=== PATIENT | female | born 1990 | race Hispanic/Latino ===

== ENCOUNTER 2024-02-08 16:33 | Observation (INO) | payer MEDICAID ==
[~2024-02-08] VITALS: Ht 170.2 cm; Wt 121.6 kg
[2024-02-08 16:35] VITALS: BP 136/78; PULSE 71; RESP 20
[2024-02-08 17:46] LABS: APPEARANCE,URINE CLEAR (CLEAR); BILIRUBIN,URINE NEGATIVE (NEGATIVE); COLOR,URINE YELLOW (YELLOW); GLUCOSE, URINE (UA) 500 mg/dL (NEGATIVE); KETONES,URINE 60 mg/dL (NEGATIVE); LEUKOCYTE ESTERASE ,URINE NEGATIVE Leu/uL (NEGATIVE); NITRATE,URINE NEGATIVE (NEGATIVE); OCCULT BLOOD,URINE NEGATIVE (NEGATIVE); PH,URINE 5.5 (5.0-8.0); PROTEIN,URINE 10 mg/dL (NEGATIVE); UROBILINOGEN,URINE 0.2 mg/dL (0.2-1.0)
[2024-02-08 17:54] LABS: AMPHET/METH SCREEN,URINE NEGATIVE (NEGATIVE); BARBITURATE SCREEN, URINE NEGATIVE (NEGATIVE); BENZODIAZEPINES SCREEN,URINE NEGATIVE (NEGATIVE); CANNABINOID SCREEN,URINE NEGATIVE (NEGATIVE); COCAINE SCREEN,URINE NEGATIVE (NEGATIVE); OPIATE SCREEN,URINE NEGATIVE (NEGATIVE); PHENCYCLIDINE SCREEN,URINE NEGATIVE (NEGATIVE)
[2024-02-08 17:59] LABS: ADD UA MICROSCOPIC YES
[2024-02-08 18:01] LABS: BACTERIA,URINE RARE /HPF (None Seen); MUCUS,URINE RARE LPF (None Seen); RBC,URINE 0-1 /HPF (0-1); SQUAMOUS EPITHELIAL CELL,UR FEW /HPF (0-2); YEAST,URINE BUDDING RARE /HPF (None Seen)
== END 2024-02-08 18:35 | disposition home or self-care (01) ==
LOC: EDH 16:33 → LDH 16:34
PROVIDERS: ADMIT Internal Medicine; ATTEND Internal Medicine
DX: O75.9 Complication of labor and delivery, unspecified (principal); O16.3 Unspecified maternal hypertension, third trimester; O99.513 Diseases of the respiratory system complicating pregnancy, third trimester; O26.893 Other specified pregnancy related conditions, third trimester; R42 Dizziness and giddiness; R06.02 Shortness of breath; R25.1 Tremor, unspecified; Z3A.31 31 weeks gestation of pregnancy; Z79.899 Other long term (current) drug therapy
CPT/HCPCS: 80305; 81001; G0378 ×2; G0379

== ENCOUNTER 2024-03-01 10:15 | Observation (INO) | payer MEDICAID ==
[~2024-03-01] VITALS: Ht 170.2 cm; Wt 122.9 kg
== END 2024-03-01 10:22 | disposition home or self-care (01) ==
LOC: LDH 10:15
PROVIDERS: ADMIT Internal Medicine; ATTEND Internal Medicine
DX: O36.8130 Decreased fetal movements, third trimester, not applicable or unspecified (principal); Z3A.34 34 weeks gestation of pregnancy
CPT/HCPCS: 76819; G0379; G0378; 59025

== ENCOUNTER 2024-03-03 11:49 | Observation (INO) | payer MEDICAID ==
[~2024-03-03] VITALS: Ht 170.2 cm; Wt 122.9 kg
[2024-03-03 11:53] VITALS: BP 120/76; PULSE 79; RESP 16
[2024-03-03 12:35] LABS: APPEARANCE,URINE CLEAR (CLEAR); BILIRUBIN,URINE NEGATIVE (NEGATIVE); COLOR,URINE YELLOW (YELLOW); GLUCOSE, URINE (UA) 50 mg/dL (NEGATIVE); KETONES,URINE NEGATIVE (NEGATIVE); LEUKOCYTE ESTERASE ,URINE NEGATIVE Leu/uL (NEGATIVE); NITRATE,URINE NEGATIVE (NEGATIVE); OCCULT BLOOD,URINE NEGATIVE (NEGATIVE); PROTEIN,URINE 10 mg/dL (NEGATIVE)
[2024-03-03 12:43] LABS: AMPHET/METH SCREEN,URINE NEGATIVE (NEGATIVE); BARBITURATE SCREEN, URINE NEGATIVE (NEGATIVE); BENZODIAZEPINES SCREEN,URINE NEGATIVE (NEGATIVE); CANNABINOID SCREEN,URINE NEGATIVE (NEGATIVE); COCAINE SCREEN,URINE NEGATIVE (NEGATIVE); OPIATE SCREEN,URINE NEGATIVE (NEGATIVE); PHENCYCLIDINE SCREEN,URINE NEGATIVE (NEGATIVE)
[2024-03-03 12:44] LABS: ADD UA MICROSCOPIC YES
[2024-03-03 12:45] LABS: BACTERIA,URINE RARE /HPF (None Seen); MUCUS,URINE RARE LPF (None Seen); RBC,URINE 0-1 /HPF (0-1); SQUAMOUS EPITHELIAL CELL,UR RARE /HPF (0-2)
[2024-03-03 14:25] LABS: APPEARANCE,URINE CLEAR (CLEAR); BILIRUBIN,URINE NEGATIVE (NEGATIVE); COLOR,URINE YELLOW (YELLOW); GLUCOSE, URINE (UA) NEGATIVE (NEGATIVE); KETONES,URINE 60 mg/dL (NEGATIVE); LEUKOCYTE ESTERASE ,URINE NEGATIVE Leu/uL (NEGATIVE); NITRATE,URINE NEGATIVE (NEGATIVE); OCCULT BLOOD,URINE NEGATIVE (NEGATIVE); PROTEIN,URINE 10 mg/dL (NEGATIVE); UROBILINOGEN,URINE 0.2 mg/dL (0.2-1.0)
[2024-03-03 14:27] LABS: ADD UA MICROSCOPIC YES
[2024-03-03 14:28] LABS: MUCUS,URINE RARE LPF (None Seen); RBC,URINE 0-1 /HPF (0-1); SQUAMOUS EPITHELIAL CELL,UR RARE /HPF (0-2); WBC,URINE 0-1 /HPF (0-1)
[2024-03-03 14:41] LABS: HEMATOCRIT 32.5 % (36-48); MEAN CORPUSCULAR HGB CONC 33.5 g/dL (32.0-36.0); MEAN CORPUSCULAR VOLUME 98.5 fL (79-99); PLATELET COUNT (AUTO) 243 K/uL (130-400); RED CELL DISTRIBUTION WIDTH 13.2 % (11.0-15.5); WHITE BLOOD COUNT (AUTO) 9.2 K/uL (4.8-10.8)
[2024-03-03] MEDS: ACETAMINOPHEN 325 MG TAB PO ONE (14:42)
[2024-03-03] MEDS: CLINDAMYCIN IVPB 300MG/50ML 50 ML IV SCH (14:59)
[2024-03-03 15:50] LABS: BAND NEUTROPHILS % (MANUAL) 4 % (0-2); LYMPHOCYTES % (MANUAL) 15 % (22-44); SEGMENTED NEUTROPHILS % 81 % (40-70); TOTAL CELLS COUNTED 100
[2024-03-03 15:52] LABS: MAN.DIFF COMMENT-IMPRESSION MANUAL DIFFERENTIAL; PLATELET MORPHOLOGY COMMENT ADEQUATE; WBC MORPHOLOGY CONSISTENT W/DIFF
== END 2024-03-03 16:05 | disposition home or self-care (01) ==
LOC: EDH 11:49 → LDH 11:50
PROVIDERS: ADMIT Internal Medicine; ATTEND Internal Medicine
DX: O26.893 Other specified pregnancy related conditions, third trimester (principal); R10.9 Unspecified abdominal pain; R42 Dizziness and giddiness; R51.9 Headache, unspecified; R10.2 Pelvic and perineal pain; O21.2 Late vomiting of pregnancy; O10.913 Unspecified pre-existing hypertension complicating pregnancy, third trimester; O99.323 Drug use complicating pregnancy, third trimester; F12.90 Cannabis use, unspecified, uncomplicated; Z3A.34 34 weeks gestation of pregnancy; Z88.0 Allergy status to penicillin; Z79.899 Other long term (current) drug therapy
CPT/HCPCS: 96365; 96361; 80305; 85025; 81001 ×2; 36415; 76705 ×2; G0378 ×4; S0077; J7120; 96360; J3490

== ENCOUNTER 2025-03-01 08:52 | Emergency (ER) | payer MEDICAID ==
[~2025-03-01] VITALS: Ht 170.2 cm; Wt 136.1 kg
[~2025-03-01 08:52] MED LIST: PREN-154 PO
[2025-03-01] MEDS: acetaMINOPHEN 500 MG TABLET PO ONE (09:25)
[2025-03-01] MEDS: ondanSETRON 4MG TABLET PO ONE (09:34)
[2025-03-01] MEDS: predniSONE 20 MG TABLET PO ONE (09:34)
[2025-03-01 09:37] LABS: COVID19 (SARS ANTIGEN RAPID) PRESUMPTIVE NEGATIVE (NEGATIVE); INFLUENZA TYPE A Negative For Type A (NEGATIVE)
[2025-03-01 09:42] LABS: INFLUENZA TYPE B Positive For Type B (NEGATIVE)
--- NOTE | 2025-03-01 09:47 | ERN ---
General Chief Complaint: Flu Symptoms Stated Complaint: FLU [place] SYMPTOMS Time Seen by MD: 08:56 History of Present Illness Initial Comments 34-year-old female presents for it flu-like illness. She reports headache, cough, nausea with one episode of vomiting, body aches, fever. Symptoms been present for about 48 hours now. Allergies: Coded Allergies: Penicillins (Unverified Allergy, Unknown, 02/08/24) codeine (Unverified Allergy, Unknown, 02/08/24) Home Meds Active Scripts Ondansetron (Ondansetron Odt) 4 Mg Tab.rapdis, 1 TAB PO Q6HPRN PRN for nausea/vomiting for 3 Days, #10 TAB 0 Refills Prov:SHANNON TINAJERO 03/01/25 Reported Medications Vits #93/Iron Fum/FA ( Formula Tablet) 9 Mg Iron-267 Mcg Tablet, 1 EACH PO DAILY, TAB 03/27/24 Past Medical History Past Medical History: No Pertinent History Past Surgical History: Social History Social History: Negative, Lives with family Female( History) LMP: Feb 25, 2025 : 1 Para: 1 Aborts: 0 ROS Dictation CONSTITUTIONAL: Fever body aches HEAD/FACE: No signs of trauma. EENT: No eye pain, no blurred vision, no tearing, no double vision, no ear pain, no ear discharge, no nose pain, no nasal congestion, no throat pain, no throat swelling, no mouth pain. RESPIRATORY: No cough, no orthopnea, no SOB, no stridor, no wheezing. CARDIOVASCULAR: Cough GASTROINTESTINAL/ABDOMINAL: Nausea GENITOURINARY: No abnormal discharge, no dysuria, no frequent urination, no hematuria. No complaints of pain in the genitals. MUSCULOSKELETAL: No back pain, no gout, no joint pain, no joint swelling, no muscle pain, no muscle stiffness, no neck pain. INTEGUMENTARY: No change in color, no change in hair/nails, no dryness, no lesion, no lumps, no rash. NEUROLOGICAL/PSYCH: No anxiety, not depressed, no emotional problem, no headache, no numbness, no pre-existing deficit, no history of seizures, no tremors, no weakness. HEMATOLOGIC/LYMPHATIC: Not anemic, no history of blood clots, no apparent bleeding, no bruising, glands not swollen. All Systems Negative, Except as Noted. Physical Exam Physical Exam Dictation VITAL SIGNS: Reviewed. GENERAL APPEARANCE: Alert, oriented x3, no acute distress, obese. HEAD AND FACE: Non-traumatic. EYES: PERRL, pink conjunctivas, eyelid no trauma, anterior chamber clear. EARS: Pinnas intact and no signs of trauma or erythema. Ear canals clear and no discharge. TMs no erythema. NOSE: No discharge, no bleeding. OROPHARYNX: Mouth normal, teeth no caries, tongue pink. Pharynx clear, no erythema. Tonsils no exudates, no abscesses noted. Mucous membrane moist. NECK: Supple, non-tender, no thyromegaly, no masses, no JVD, no bruits. BREAST: Deferred. CHEST: No tenderness, no crepitus, no paradoxical movement, no retractions. LUNGS: Clear, well-ventilated, symmetric, no rales, no wheezing, no rhonchi, no stridor, good breath sounds bilaterally. HEART: Regular rate, regular rhythm, no murmur, no gallops. VASCULAR: No peripheral edema. ABDOMEN: Soft, positive bowel sounds, nondistended, no guarding, nontender, no rebound, no masses no hepatomegaly, no splenomegaly, no Juan's sign, no hernias. RECTAL: Deferred. GENITAL: Deferred. NEUROLOGICAL: Normal speech, gross motor function intact, gross sensory func tion intact. MUSCULOSKELETAL: Neck nontender, full range of motion, back nontender, full range of motion. EXTREMITIES: Nontender, full range of motion. SKIN: Color pink, dry, no turgor, no rash, no lacerations, no abrasions, no contusions. LYMPHATICS: Deferred. Results Laboratory and Microbiology Lab and Micro Result Laboratory Tests Test 03/01/25 08:59 Influenza Type A Antigen Negative For Type A Influenza Type B Antigen Positive For Type B SARS-CoV-2 Antigen (Rapid) PRESUMPTIVE NEGATIVE MDM CC: Flu-like illness Historian: Patient Comorbidities: Obesity hypertension Limitations by social determinants of health: None Differential diagnosis: Flu, sepsis, other. Vital signs: Febrile here otherwise vital signs stable Clinical exam is unremarkable CXR (independently interpreted by me): No focal infiltrates cardiomegaly or pleural effusions. Labs (independently ordered and interpreted by me): COVID negative, flu B p ositive. Patient was consistent with flu symptoms. No signs of SIRS sepsis or toxicity. No signs of major dehydration. No respiratory distress. Treatment in the ED: Zofran and Tylenol Plan: We will DC with prescriptions for Zofran, recommend OTC Tylenol and ibuprofen. ED Course Orders Procedure Category Date Status Time Influenza Type A & B, LAB 03/01/25 Complete Rapid 08:53 Covid19 (Sars Antigen LAB 03/01/25 Complete Rapid) 08:53 Acetaminophen 500mg PHA 03/01/25 Complete Tab (Tylenol 500mg T 09:30 Chest 1vw RAD 03/01/25 Taken 09:25 Prednisone 20mg Tab PHA 03/01/25 Complete (Deltasone/Orasone 2 09:30 Ondansetron 4mg PHA 03/01/25 Complete Tablet (Zofran 4mg 09:30 Current Medications Medications (Trade) Dose Ordered Sig/Oliver Route PRN Reason Start Time Stop Time Status Last Admin Dose Admin Acetaminophen (TYLenol 500MG TAB) 1,000 mg ONCE ONCE PO 03/01/25 09:30 03/01/25 09:31 DC 03/01/25 09:25 Ondansetron HCl (zoFRAN 4MG TABLET) 4 mg ONCE ONCE PO 03/01/25 09:30 03/01/25 09:31 DC 03/01/25 09:34 Prednisone (deltaSONE/ oraSONE 20MG TAB) 20 mg ONCE ONCE PO 03/01/25 09:30 03/01/25 09:31 DC 03/01/25 09:34 Vital Signs Date Time Temp Pulse Resp B/P (MAP) Pulse Ox O2 Delivery O2 Flow Rate FiO2 03/01/25 09:25 102.6 03/01/25 08:54 102.6 95 20 137/96 99 Room Air 0 DX & DISP Disposition: Discharge Departure Impression: Primary Impression: Influenza B Condition: Stable Scripts Ondansetron (Ondansetron Odt) 4 Mg Tab.rapdis 1 TAB PO Q6HPRN PRN for nausea/vomiting for 3 Days, #10 TAB 0 Refills Prov: SHANNON TINAJERO DO 03/01/25 Additional Instructions: You tested positive for influenza B, or the flu. This is likely causing your symptoms. I have prescribed ondansetron dissolvable tabs to use as needed for nausea and vomiting. Alternate Tylenol (1000 mg) and ibuprofen (600 mg) every 4 hours as needed for body aches and fever. Be sure to drink plenty of liquids. If you do not want to eat whole foods, that is okay. Your chest x-ray is clear. Rest while you heal for the next few days. Once your fever subsides you can return to your normal daily activities. Referrals: ENMANUEL MOLINA MD (PCP) SHANNON TINAJERO DO Mar 01, 2025 09:47
[2025-03-01] MEDS ORDERED: ONDA-243 PO (09:48)
[2025-03-01 10:38] VITALS: TEMP 99
[2025-03-01 10:39] VITALS: BP 131/87; PULSE 90; RESP 18; TEMP 99; O2SAT 99
--- NOTE | 2025-03-01 11:08 | HMCIMG ---
CHEST 1VW HISTORY: Cough COMPARISON: None FINDINGS: A frontal projection of the chest was obtained. No acute pulmonary infiltrates is seen. The heart is borderline enlarged. Prominent interstitial markings are seen. Mild degenerative changes are seen. No evidence of aortic calcification is seen. IMPRESSION: 1. No acute pulmonary infiltrate is seen.
== END 2025-03-01 10:42 | disposition home or self-care (01) ==
LOC: EDH 08:52
DX: J10.1 Influenza due to other identified influenza virus with other respiratory manifestations (principal); E66.9 Obesity, unspecified; I10 Essential (primary) hypertension; Z88.0 Allergy status to penicillin; Z88.5 Allergy status to narcotic agent; Z68.42 Body mass index [BMI] 45.0-49.9, adult; Z20.822 Contact with and (suspected) exposure to COVID-19
CPT/HCPCS: 99284; 71045; 87426; 87804 ×2; Q0162

== ENCOUNTER 2025-08-18 01:04 | Emergency (ER) | payer MEDICAID, OTHER ==
[~2025-08-18] VITALS: Ht 170.2 cm; Wt 131.1 kg
[~2025-08-18 01:04] MED LIST changes: +KETO10 PO; +ORPH100 PO; -PREN-154 PO
[2025-08-18 01:50] LABS: IMMATURE GRANULOCYTE ABSOLUTE 0.03 K/uL (0-1); NUCLEATED RED BLOOD CELLS 0.0 % (0.0-0.19); PLATELET COUNT (AUTO) 309 K/uL (130-400); RED BLOOD CELL COUNT(AUTO) 3.46 MIL/uL (4.00-5.50); RED CELL DISTRIBUTION WIDTH 12.5 % (11.0-15.5); WHITE BLOOD COUNT (AUTO) 9.0 K/uL (4.8-10.8)
--- NOTE | 2025-08-18 01:50 | ERN ---
ED Note History of Present Illness Stated Complaint: C/O PAIN TO BODY AFTER FALL ON 08/13/2025 Chief Complaint: Generalized Body Aches Time Seen by MD: 01:08 Dictation: 35-YEAR-OLD FEMALE PRESENTS TO ER COMPLAINTS OF RUNNY NOSE AND BODY ACHES X2 DAYS. PATIENT STATES WAS HOSPITALIZED 4 DAYS AGO DUE TO A FALL. TREATED FOR BROKEN NOSE. PATIENT WITH BRUISING TO FACE NOTED. Allergies: Coded Allergies: Penicillins (Unverified Allergy, Unknown, 02/08/24) codeine (Unverified Allergy, Unknown, 02/08/24) Home Meds Active Scripts Ibuprofen (Ibuprofen) 600 Mg Tablet, 600 MG PO Q6H PRN for PAIN, #15 TAB Prov:ALVARO PIRES NP 08/18/25 Ketorolac Tromethamine (Toradol) 10 Mg Tab, 1 TAB PO Q6HPRN PRN for pain for 5 Days, #20 TAB 0 Refills Prov:ABRAHAM FIGUEROA MD 07/11/25 Orphenadrine Citrate (Norflex) 100 Mg Srtab, 1 TAB PO [id number] PRN for pain for 15 Days, #30 TAB 0 Refills Prov:ABRAHAM FIGUEROA MD 07/11/25 Past Medical History Past Medical History: No Pertinent History Additional Past Medical Hx: Hypertension during Surgical History: Cholecystectomy, Social History: Negative, Lives with family LMP: Aug 15, 2025 : 1 Para: 1 Aborts: 0 Review of System Dictation CONSTITUTIONAL: NEGATIVE FOR FEVER AND WEIGHT LOSS EYES: NEGATIVE DISCHARGE ENT: POSITIVE PAIN AND BRUISING. CARDIOVASCULAR: NEGATIVE FOR CHEST PAIN, PALPITATIONS, AND EDEMA RESPIRATORY: NEGATIVE FOR SHORTNESS OF BREATH, COUGH, WHEEZING, AND PLEURITIC CHEST PAIN ABDOMEN/GI: NEGATIVE FOR ABDOMINAL PAIN, NAUSEA, VOMITING, DIARRHEA, AND CONSTIPATION BACK: NEGATIVE FOR INJURY AND PAIN : NEGATIVE FOR INJURY, BLEEDING AND DISCHARGE MS/EXTREMITY: NEGATIVE FOR INJURY AND DEFORMITY SKIN: NEGATIVE FOR RASH, AND DISCOLORATION NEURO: NEGATIVE FOR HEADACHE, WEAKNESS, NUMBNESS, TINGLING, AND SEIZURE PSYCH: NEGATIVE FOR SUICIDE IDEATION, HOMICIDAL IDEATION, AND HALLUCINATIONS ALLERGY/IMMUNOLOGY: NEGATIVE FOR HIVES, RASH, AND ALLERGIES ALL SYSTEMS NEGATIVE, EXCEPT NOTED ABOVE. Initial Vital Sign VS Vital Signs Date Time Temp Pulse Resp B/P (MAP) Pulse Ox O2 Delivery O2 Flow Rate FiO2 08/18/25 01:06 97.9 75 20 159/108 99 Room Air 08/18/25 01:30 0 21 Physical Exam Dictation GENERAL: AWAKE, ALERT, NAD HEAD/FACE: NORMOCEPHALIC, BRUISING NOTED TO FACE EYES: PERRL, EOMI, VISION AT BASELINE ENT: ORAL CAVITY CLEAR, TMS CLEAR, NO SIGNS OF INFECTION NECK: TRACHEA MIDLINE, SUPPLE, NO NUCHAL RIGIDITY CARDIOVASCULAR: RRR, NORMAL RESPIRATORY: CTAB, NO RESPIRATORY DISTRESS, NO RALES OR WHEEZES ABDOMEN: SOFT, NON-TENDER, NON-DISTENDED, NORMAL BOWEL SOUNDS, NO GUARDING OR REBOUND. SKIN: WARM, DRY, NORMAL TURGOR, NO RASH MS/EXTREMITY: PULSES EQUAL, NO CYANOSIS, NEUROVASCULAR INTACT, FROM NEURO: COAX4, GCS 15, STRENGTH 5/5, CN 2-12 INTACT, NORMAL CEREBELLAR EXAM, NORMAL GAIT, PSYCH: NORMAL BEHAVIOR, MOOD, AND AFFECT NORMAL Results (Laboratory/Radiology) Laboratory/Radiology Laboratory Tests Test 08/18/25 01:33 08/18/25 01:43 08/18/25 01:44 Influenza Type A Antigen Negative For Type A Influenza Type B Antigen Negative For Type B SARS-CoV-2 Antigen (Rapid) PRESUMPTIVE NEGATIVE Urine Color YELLOW (YELLOW) Urine Appearance CLEAR (CLEAR) Urine pH 5.5 (5.0-8.0) Urine Specific Oakley 1.022 (1.001-1.031) Urine Protein NEGATIVE mg/dL (NEGATIVE) Urine Glucose (UA) NEGATIVE mg/dL (NEGATIVE) Urine Ketones 5 mg/dL (NEGATIVE) H Urine Occult Blood NEGATIVE (NEGATIVE) Urine Nitrate NEGATIVE (NEGATIVE) Urine Bilirubin NEGATIVE mg/dL (NEGATIVE) Urine Urobilinogen 0.2 mg/dL (0.2-1.0) Urine Leukocyte Esterase NEGATIVE Neyda/uL Urine RBC None /HPF (0-1) Urine WBC 0-1 /HPF (0-1) Urine Squamous Epithelial Cells RARE /HPF (0-2) Urine Bacteria FEW /HPF (None Seen) Urine HCG, Qualitative NEGATIVE (NEGATIVE) White Blood Count 9.0 K/uL (4.8-10.8) Red Blood Count 3.46 MIL/uL (4.00-5.50) L Hemoglobin 11.9 g/dL (12.0-16.0) L Hematocrit 34.3 % (36-48) L Mean Corpuscular Volume 99.1 fL (79-99) H Mean Corpuscular Hemoglobin 34.4 pg (27.0-33.0) H Mean Corpuscular Hemoglobin Concent 34.7 g/dL (32.0-36.0) Red Cell Distribution Width 12.5 % (11.0-15.5) Platelet Count 309 K/uL (130-400) Mean Platelet Volume 10.1 fL (7.5-10.5) Immature Granulocyte % (Auto) 0.3 % (0-1) Neutrophils (%) (Auto) 64.4 % (40.0-77.0) Lymphocytes (%) (Auto) 24.2 % (21.0-51.0) Monocytes (%) (Auto) 7.9 % (3.0-13.0) Eosinophils (%) (Auto) 3.0 % (0.0-8.0) Basophils (%) (Auto) 0.2 % (0.0-5.0) Neutrophils # (Auto) 5.8 K/uL (1.8-7.7) Lymphocytes # (Auto) 2.2 K/uL (1.0-4.8) Monocytes # (Auto) 0.7 K/uL (0.1-1.0) Eosinophils # (Auto) 0.27 K/uL (0.00-0.70) Basophils # (Auto) 0.02 K/uL (0.00-0.20) Absolute Immature Granulocyte (auto 0.03 K/uL (0-1) Nucleated Red Blood Cells 0.0 % (0.0-0.19) Sodium Level 139 mmol/L (136-145) Potassium Level 3.5 mmol/L (3.5-5.1) Chloride Level 104 mmol/L (101-111) Carbon Dioxide Level 27 mmol/L (21-32) Blood Urea Nitrogen 6 mg/dL (7-18) L Creatinine 0.6 mg/dL (0.5-1.0) Glomerular Filtration Rate Calc 119 mL/min (>90) Random Glucose 91 mg/dL (70-105) Total Calcium 8.1 mg/dL (8.5-10.1) L ED Course ED Course Orders Procedure Category Date Status Time Cbc With Differential LAB 08/18/25 Complete Basic Metabolic Panel LAB 08/18/25 Complete 01:28 Covid19 (Sars Antigen LAB 08/18/25 Complete Rapid) 01:28 Influenza Type A & B, LAB 08/18/25 Complete Rapid 01:28 Urinalysis Profile LAB 08/18/25 Complete 01:28 Acetaminophen 500mg PHA 08/18/25 Complete Tab (Tylenol 500mg T 01:30 ,Urine Test LAB 08/18/25 Complete 01:28 Current Medications Medications (Trade) Dose Ordered Sig/Oliver Route PRN Reason Start Time Stop Time Status Last Admin Dose Admin Acetaminophen (TYLenol 500MG TAB) 1,000 mg ONCE ONCE PO 08/18/25 01:30 08/18/25 01:33 DC 08/18/25 02:01 Vital Signs Date Time Temp Pulse Resp B/P (MAP) Pulse Ox O2 Delivery O2 Flow Rate FiO2 08/18/25 01:30 98.2 76 18 162/87 99 Room Air* 0 21 08/18/25 01:06 97.9 75 20 159/108 99 Room Air Medical Decision Making MDM MDM: DIFFERENTIAL DIAGNOSIS: URI, COVID, INFLUENZA RATIONALE: TESTS CONSIDERED AND ORDERED SECONDARY TO SHARED DECISION MAKING INCLUDE: LABS, ECG AND RADIOLOGY PREVIOUS OUTSIDE RECORDS REVIEWED: OLD ER VISITS. RISK OF COMPLICATION AND/OR MORBIDITY OR MORTALITY OF PATIENT MANAGEMENT: NONE MEDICATIONS-PER MEDICATION RECONCILIATION NEED FOR HOSPITALIZATION: PATIENT DOES NOT MEET CRITERIA FOR HOSPITALIZATION. NEED FOR EMERGENCY MAJOR/MINOR SURGERY: NO THERE ARE NO SOCIAL CONCERNS WITH THIS PATIENT. PRESCRIPTION DRUG MANAGEMENT PRESCRIPTIONS WILL INCLUDE SYMPTOMATIC CARE PATIENT'S PRIOR EXTERNAL MEDICAL RECORDS FROM OTHER ER VISITS WERE REVIEWED BY ME INDICATED. PRIOR TESTING AND RESULTS FROM PREVIOUS VISITS WERE REVIEWED. PRIOR TESTS WERE TAKEN INTO ACCOUNT WITH MEDICAL DECISION MAKING AND RESOURCE UTILIZATION, INDEPENDENT HISTORIAN/HISTORIANS WERE USED TO OBTAIN COMPLETE MEDICAL HISTORY. I INDEPENDENTLY INTERPRETED THE TEST THAT WERE PERFORMED, RESULTS WERE REVIEWED BY ME AND CONSIDERED FINDINGS ON RADIOLOGY IF ORDERED. DX & DISP Disposition: Discharge Departure Impression: Primary Impression: URI, acute Condition: Stable Scripts Ibuprofen (Ibuprofen) 600 Mg Tablet 600 MG PO Q6H PRN for PAIN, #15 TAB Prov: ALVARO PIRES BUILDING [employer] RETROFIT TECHNICIAN 08/18/25 Additional Instructions: NO SIGNS OF A BACTERIAL INFECTION. SYMPTOMS MAY BE CONSISTENT WITH VIRAL UPPER RESPIRATORY ILLNESS. TAKE MEDICATION PRESCRIBED FOR PAIN OR FEVER. FOLLOW-UP WITH YOUR PCP IN 24-72 HOURS AND IN THE EVENT IF SYMPTOMS WORSEN OR AN EMERGENCY OVERNIGHT REPORT TO THE ED IMMEDIATELY Referrals: SELF,REFERRAL (PCP) ALVARO PIRES NP Aug 18, 2025 01:50
[2025-08-18 01:57] LABS: CREATININE 0.6 mg/dL (0.5-1.0); GLOMERULAR FILTR. RATE CALC 119.0 mL/min (>90); GLUCOSE,RANDOM 91.0 mg/dL (70-105); SODIUM SERUM 139.0 mmol/L (136-145); UREA NITROGEN, BLOOD 6.0 mg/dL (7-18)
[2025-08-18 01:59] LABS: COVID19 (SARS ANTIGEN RAPID) PRESUMPTIVE NEGATIVE (NEGATIVE); INFLUENZA TYPE A Negative For Type A (NEGATIVE); INFLUENZA TYPE B Negative For Type B (NEGATIVE)
[2025-08-18 02:01] LABS: APPEARANCE,URINE CLEAR (CLEAR); GLUCOSE, URINE (UA) NEGATIVE (NEGATIVE); LEUKOCYTE ESTERASE ,URINE NEGATIVE Leu/uL (NEGATIVE); NITRATE,URINE NEGATIVE (NEGATIVE); OCCULT BLOOD,URINE NEGATIVE (NEGATIVE)
[2025-08-18 02:02] LABS: ADD UA MICROSCOPIC YES
[2025-08-18 02:03] LABS: HCG,QUALITATIVE URINE NEGATIVE (NEGATIVE)
[2025-08-18 02:04] LABS: SQUAMOUS EPITHELIAL CELL,UR RARE /HPF (0-2)
[2025-08-18] MEDS ORDERED: IBUP-1492 PO (02:09)
[2025-08-18 02:27] VITALS: BP 142/82; PULSE 72; RESP 18; TEMP 98.4; O2SAT 99
== END 2025-08-18 02:28 | disposition home or self-care (01) ==
LOC: EDH 01:04
DX: J06.9 Acute upper respiratory infection, unspecified (principal); I10 Essential (primary) hypertension; Z20.822 Contact with and (suspected) exposure to COVID-19; Z88.0 Allergy status to penicillin; Z88.5 Allergy status to narcotic agent; Z90.49 Acquired absence of other specified parts of digestive tract
CPT/HCPCS: 36415; 80048; 81001; 81025; 85025; 87426; 87804; 99283

== ENCOUNTER 2025-11-08 20:55 | Emergency (ER) | payer MEDICAID ==
[~2025-11-08] VITALS: Ht 170.2 cm; Wt 122.5 kg
[2025-11-08 21:47] VITALS: BP 132/90; PULSE 82; RESP 20; TEMP 98.3; O2SAT 100
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
== END 2025-11-08 22:04 | disposition home or self-care (01) ==
LOC: EDH 20:55
DX: O26.891 Other specified pregnancy related conditions, first trimester (principal); Z88.0 Allergy status to penicillin; Z88.5 Allergy status to narcotic agent; Z90.49 Acquired absence of other specified parts of digestive tract; Z98.890 Other specified postprocedural states; Z3A.01 Less than 8 weeks gestation of pregnancy
CPT/HCPCS: 99282

== ENCOUNTER 2025-11-20 22:00 | Emergency (ER) | payer OTHER, MEDICAID ==
[~2025-11-20] VITALS: Ht 170.2 cm; Wt 122.9 kg
[~2025-11-20 22:00] MED LIST changes: +IBUP-1492 PO
[2025-11-20 22:01] VITALS: BP 142/94; PULSE 89; RESP 20; TEMP 97.6
--- NOTE | 2025-11-20 23:12 | NUR ---
RADIOLOGY CAME TO PERFORM EXAM, NO ANSWER
--- NOTE | 2025-11-20 23:12 | NUR ---
PT CALLED, NO ANSWER
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
== END 2025-11-20 23:17 | disposition left against medical advice (07) ==
LOC: EDH 22:00
DX: M54.2 Cervicalgia (principal); M79.601 Pain in right arm; M54.6 Pain in thoracic spine; Z53.21 Procedure and treatment not carried out due to patient leaving prior to being seen by health care provider; V89.2XXA Person injured in unspecified motor-vehicle accident, traffic, initial encounter; Y93.89 Activity, other specified; Y92.488 Other paved roadways as the place of occurrence of the external cause; Y99.8 Other external cause status
CPT/HCPCS: 99281